=== PATIENT | female | born 1960 | race Caucasian/White ===

== ENCOUNTER 2016-12-11 05:17 | Day surgery (SDC) | payer BC ==
[2016-12-11] MEDS ORDERED: PROPOFOL 20 ML ONE (09:23)
[2016-12-11] MEDS ORDERED: MIDAZOLAM HCL 2 MG/2 ML SINGLE DOSE VIAL ONE (09:23)
[2016-12-11] MEDS ORDERED: PROMETHAZINE HCL 25 MG/1 ML VIAL IVPUSH PRN (09:38)
[2016-12-11] MEDS ORDERED: oxyCODONE HCL 5 MG TABLET PO PRN ×2 (09:38→10:18)
[2016-12-11] MEDS ORDERED: ONDANSETRON 4 MG/2 ML VIAL IVPUSH PRN (09:38)
[2016-12-11] MEDS ORDERED: LACTATED RINGERS SOLUTION 1,000 ML IV SCH (09:45)
[2016-12-11] MEDS ORDERED: DEXAMETHASONE SOD PHOSPHATE 4 MG/1 ML VIAL ONE (09:51)
--- NOTE | 2016-12-11 10:09 | HP ---
Past Medical History - Primary Care Physician PCP:: Crow Smith - Admission Chief Complaint: thicken postmenopausal EM , hx of breast ca History of Present Illness: 55 yo f menopausal on no hrt, hx of breast ca , was on tamoxifen , sono showed thicken EM , admitted for hysteroscopy D&C. rba discussed History Source: Patient Limitations to Obtaining History: No Limitations - Past Surgical History Past Surgical History: Yes: Colectomy Hx Myomectomy: No Hx Transabdominal Cerclage: No - Smoking History Smoking history: Never smoked Have you smoked in the past 12 months: No - Alcohol/Substance Use Hx Alcohol Use: Yes (SOCIALLY) - Social History History of Recent Travel: No Home Medications - Allergies Allergies/Adverse Reactions: Allergies Allergy/AdvReac Type Severity Reaction Status Date / Time chloramphenicol Allergy Intermediate Swelling Verified 12/11/16 08:19 [From Chloromycetin] chloramphenicol sodium Allergy Intermediate Swelling Verified 12/11/16 08:19 succinate [From Chloromycetin] - Home Medications Home Medications: Ambulatory Orders NK [No Known Home Medication] 12/09/16 Review of Systems - Review of Systems Constitutional: reports: No Symptoms Eyes: reports: No Symptoms HENT: reports: No Symptoms Neck: reports: No Symptoms Cardiovascular: reports: No Symptoms Respiratory: reports: No Symptoms Gastrointestinal: reports: No Symptoms Genitourinary: reports: No Symptoms Breasts: reports: No Symptoms Reported Musculoskeletal: reports: No Symptoms Integumentary: reports: No Symptoms Neurological: reports: No Symptoms Endocrine: reports: No Symptoms Hematology/Lymphatic: reports: No Symptoms Psychiatric: reports: No Symptoms Physical Exam-[employer] BU[employer]ER Vital Signs: Vital Signs Temperature 97.9 F 12/11/16 08:14 Pulse Rate 76 12/11/16 08:14 Respiratory Rate 20 12/11/16 08:14 Blood Pressure 116/76 12/11/16 08:14 O2 Sat by Pulse Oximetry (%) 98 12/11/16 08:13 Constitutional: Yes: Well Nourished, No Distress, Calm Eyes: Yes: WNL, Conjunctiva Clear, EOM Intact HENT: Yes: WNL, Atraumatic, Normocephalic Neck: Yes: WNL, Supple, Trachea Midline Cardiovascular: Yes: WNL, Regular Rate and Rhythm Respiratory: Yes: WNL, Regular, CTA Bilaterally Gastrointestinal: Yes: WNL ...Rectal Exam: Yes: WNL Renal/: Yes: WNL Vaginal Exam: Yes: Normal Cervix: Yes: Normal Uterus: Yes: Normal Adnexa: Normal: Left, Right Breast(s): Yes: WNL, Other (lumpectomy) Musculoskeletal: Yes: WNL Extremities: Yes: WNL Integumentary: Yes: WNL Neurological: Yes: WNL, Alert, Oriented ...Motor Strength: WNL Psychiatric: Yes: WNL, Alert, Oriented Problem List - Problem (1) Thickened endometrium Code(s): R93.8 - ABNORMAL FINDINGS ON DIAGNOSTIC IMAGING OF BODY STRUCTURES (2) HX: breast cancer Code(s): Z85.3 - PERSONAL HISTORY OF MALIGNANT NEOPLASM OF BREAST Assessment/Plan hysteroscopy D&C
[2016-12-11] MEDS ORDERED: ONDANSETRON 4 MG/2 ML VIAL IVPB PRN (10:18)
[2016-12-11] MEDS ORDERED: IBUPROFEN 800 MG/8 ML IJ IVPB PRN (10:18)
[2016-12-11] MEDS ORDERED: IBUPROFEN 600 MG TABLET (FP) PO PRN (10:18)
[2016-12-11] MEDS ORDERED: ELECTROLYTE-148 SOLN 1,000 ML IV SCH (10:30)
[2016-12-11] MEDS ORDERED: ONDANSETRON 4 MG/2 ML VIAL ONE (10:45)
[2016-12-11 11:18] VITALS: TEMP 97.6
--- NOTE | 2016-12-11 13:07 | OP ---
DATE OF OPERATION: 12/11/2016 PREOPERATIVE DIAGNOSIS: Postmenopausal thickened endometrium, history of breast cancer. POSTOPERATIVE DIAGNOSIS: Endometrial polyp. SURGEON: Crow Smith MD ANESTHESIA: General. ESTIMATED BLOOD LOSS: 25 mL. PROCEDURE: Hysteroscopy, dilatation and curettage, and polypectomy. OPERATION: The patient was taken to the operating room, had adequate general anesthesia. Examination under anesthesia revealed external genitalia to be normal. Vagina was normal. Cervix was clean, no lesion. Uterus was normal size. Adnexa, no masses were palpable. Then, with a weighted speculum in the vagina, anterior lip of the cervix was grasped with a single-tooth tenaculum, and then, uterine cavity was sounded to 8 cm. Then, hysteroscope was introduced. Visualization of the endocervical canal appeared to be normal. Uterine cavity was red with injected blood vessels, and there was a polyp at the fundal area of the uterus. Both tubal ostia were visualized. No other abnormality was found. Then, hysteroscope was withdrawn, polyp was removed, and then, endometrium was curetted. Patient tolerated the procedure well, left the OR in good condition. CROW SMITH M.D. [id number]
[2016-12-11 14:08] VITALS: BP 118/70; PULSE 68
--- NOTE | 2016-12-13 12:16 | PATH ---
Surgical Pathology Report Patient Name: EZEQUIEL BRUCE [facility]. Rec. #: [id number] /Age/Gender: 1960 (Age: 55) / F Account: [id number] Location: [facility] SURGICAL Taken: 12/11/2016 Received: 12/11/2016 Reported: 12/13/2016 Physicians: Crow Smith M.D. Specimen(s) Received A: ENDOMETRIAL POLYP B: ENDOMETRIAL CURETTINGS Clinical History Thickened endometrium Final Diagnosis A. "POLYP": FRAGMENTS OF BENIGN APPEARING SQUAMOUS EPITHELIUM WITH ACTIVE AND CHRONIC INFLAMMATION. SCANT FRAGMENTS OF BENIGN ENDOCERVICAL TISSUE. B. ENDOMETRIUM, CURETTAGE: FOCALLY POLYPOID FRAGMENTS OF PREDOMINANTLY INACTIVE ENDOMETRIUM. FRAGMENTS OF BENIGN ENDOCERVICAL TISSUE WITH SQUAMOUS METAPLASIA. FRAGMENTS OF BENIGN APPEARING SQUAMOUS EPITHELIUM WITH ACTIVE AND CHRONIC INFLAMMATION. Electronically Signed Mingo Ledezma M.D. Gross Description A. Received in formalin labeled "polyp" is a 1.1 x 0.9 x 0.2 cm aggregate of elena-pink soft tissue fragments admixed with mucus. The formalin is filtered and the specimen is entirely submitted in one cassette. B. Received in formalin labeled "endometrial curettings" is a 2.5 x 2.2 x 0.4 cm aggregate of elena-brown soft tissue fragments. The formalin is filtered and the specimen is entirely submitted in one cassette. 12/11/201612/11/2016
== END 2016-12-11 14:08 | disposition home or self-care (01) ==
LOC: JASU-SURG 05:17
PROVIDERS: ATTEND Obstetrics & Gynecology
PROC: 0UB98ZX Excision of Uterus, Via Natural or Artificial Opening Endoscopic, Diagnostic (ICD-10-PCS; principal; 2016-12-11 09:00)
PROC: 0UDB8ZX Extraction of Endometrium, Via Natural or Artificial Opening Endoscopic, Diagnostic (ICD-10-PCS; 2016-12-11 09:00)
DX: N84.0 Polyp of corpus uteri (principal); Z85.3 Personal history of malignant neoplasm of breast
CPT/HCPCS: 88305-TC; 94760

== ENCOUNTER 2023-07-29 05:08 | Day surgery (SDC) | payer OTHER ==
[2023-07-18 11:02] VITALS: BMI 34.1
[2023-07-29] MEDS ORDERED: MIDAZOLAM HCL 2 MG/2 ML SINGLE DOSE VIAL ONE (08:42)
[2023-07-29] MEDS ORDERED: PROPOFOL 40 ML ONE (08:42)
[2023-07-29] MEDS ORDERED: FENTANYL CITRATE/PF 50 MCG/ML VIAL ONE ×3 (08:42→09:57)
[2023-07-29] MEDS ORDERED: oxyCODONE HCL 5 MG TABLET PO PRN ×2 (09:03→09:45)
[2023-07-29] MEDS ORDERED: LACTATED RINGERS SOLUTION 1,000 ML IV SCH (09:15)
[2023-07-29] MEDS ORDERED: ELECTROLYTE-148 SOLN 1,000 ML IV SCH (09:45)
[2023-07-29] MEDS ORDERED: ONDANSETRON 4 MG/2 ML VIAL IVPUSH PRN (09:45)
[2023-07-29] MEDS ORDERED: IBUPROFEN 600 MG TABLET (FP) PO PRN (09:45)
[2023-07-29] MEDS ORDERED: IBUPROFEN 800 MG/8 ML IJ IVPB ONE (09:57)
[2023-07-29] MEDS: IBUPROFEN 800 MG/8 ML IJ IVPB PRN (10:00)
[2023-07-29] MEDS ORDERED: ONDANSETRON 4 MG/2 ML VIAL ONE (10:10)
[2023-07-29] MEDS: ONDANSETRON 4 MG/2 ML VIAL IVPUSH PRN (10:15)
[2023-07-29 12:12] VITALS: RESP 19
[2023-07-29 14:44] VITALS: BP 113/53; PULSE 66; TEMP 97.3
== END 2023-07-29 14:32 | disposition home or self-care (01) ==
LOC: JASU-SURG 05:08
PROVIDERS: ATTEND Obstetrics & Gynecology
PROC: 0UB98ZZ Excision of Uterus, Via Natural or Artificial Opening Endoscopic (ICD-10-PCS; principal; 2023-07-29 09:00)
DX: N84.0 Polyp of corpus uteri (principal); Z85.3 Personal history of malignant neoplasm of breast
CPT/HCPCS: 86850; 86900; 86901; 88305-TC; 94760

== ENCOUNTER 2023-12-30 04:12 | Day surgery (SDC) | payer OTHER ==
[2023-12-26 12:04] VITALS: BMI 34.9
[2023-12-30] MEDS ORDERED: ONDANSETRON 4 MG/2 ML VIAL ONE ×2 (11:12→12:57)
[2023-12-30] MEDS ORDERED: PROPOFOL 40 ML ONE ×2 (11:13→11:33)
[2023-12-30] MEDS ORDERED: MIDAZOLAM HCL 2 MG/2 ML SINGLE DOSE VIAL ONE (11:13)
[2023-12-30] MEDS ORDERED: IBUPROFEN 800 MG/8 ML IJ IVPB PRN (12:21)
[2023-12-30] MEDS ORDERED: IBUPROFEN 600 MG TABLET (FP) PO PRN (12:21)
[2023-12-30] MEDS ORDERED: oxyCODONE HCL 5 MG TABLET PO PRN (12:21)
[2023-12-30] MEDS ORDERED: ONDANSETRON 4 MG/2 ML VIAL IVPUSH PRN (12:26)
[2023-12-30] MEDS ORDERED: LACTATED RINGERS SOLUTION 1,000 ML IV SCH (12:30)
[2023-12-30] MEDS ORDERED: ELECTROLYTE-148 SOLN 1,000 ML IV SCH (12:30)
[2023-12-30] MEDS: ONDANSETRON 4 MG/2 ML VIAL IVPUSH PRN (13:00)
[2023-12-30 16:29] VITALS: BP 130/65; PULSE 70; RESP 16; TEMP 97.7
== END 2023-12-30 16:20 | disposition home or self-care (01) ==
LOC: JASU-SURG 04:12
PROVIDERS: ATTEND Obstetrics & Gynecology
PROC: 0UDB8ZX Extraction of Endometrium, Via Natural or Artificial Opening Endoscopic, Diagnostic (ICD-10-PCS; principal; 2023-12-30 11:00)
DX: N85.02 Endometrial intraepithelial neoplasia [EIN] (principal)
CPT/HCPCS: 88305-TC; 94760